=== PATIENT | female | born 1955 | race Caucasian/White ===

== ENCOUNTER 2019-08-16 13:21 | Outpatient (CLI) | payer MEDICARE, OTHER | END 2019-08-16 23:59 | disposition home or self-care (01) | LOC: CARD DIAG 13:21 | PROVIDERS: ATTEND Family Medicine | DX: I10 Essential (primary) hypertension (principal) | CPT/HCPCS: 93306; 93880 ==

== ENCOUNTER 2019-10-14 10:47 | Outpatient (CLI) | payer MEDICARE, OTHER | END 2019-10-14 23:59 | disposition home or self-care (01) | LOC: RAD 10:47 | PROVIDERS: ATTEND Family Medicine | DX: M25.561 Pain in right knee (principal); M25.562 Pain in left knee | CPT/HCPCS: 73564 ==